=== PATIENT | female | born 2000 | race Caucasian/White ===

== ENCOUNTER 2020-01-15 18:26 | Emergency (ER) | payer MEDICAID ==
[~2020-01-15] VITALS: Ht 154.9 cm; Wt 54.5 kg
[2020-01-15] MEDS ORDERED: IBUPROFEN 400 MG TABLET PO ONE (19:45)
[2020-01-15 21:29] VITALS: BP 130/77
== END 2020-01-15 21:30 | disposition home or self-care (01) ==
LOC: EMS 18:27
DX: S13.4XXA Sprain of ligaments of cervical spine, initial encounter (principal); S40.022A Contusion of left upper arm, initial encounter; S40.021A Contusion of right upper arm, initial encounter; F12.90 Cannabis use, unspecified, uncomplicated; Y04.0XXA Assault by unarmed brawl or fight, initial encounter; Y93.89 Activity, other specified; Y92.89 Other specified places as the place of occurrence of the external cause; Y99.8 Other external cause status
CPT/HCPCS: 72125; Z7502; Z7610